=== PATIENT | female | born 1990 | race Caucasian/White ===

== ENCOUNTER 2024-03-31 18:25 | Emergency (ER) | payer OTHER ==
[~2024-03-31] VITALS: Ht 157.5 cm; Wt 49.0 kg
[2024-03-31 18:27] VITALS: BP 118/70; PULSE 79; RESP 18; TEMP 98.1; O2SAT 100
[2024-03-31 19:30] VITALS: BP 116/75; PULSE 83; RESP 15; O2SAT 95
== END 2024-03-31 20:20 | disposition home or self-care (01) ==
LOC: MED 18:25
DX: O02.81 Inappropriate change in quantitative human chorionic gonadotropin (hCG) in early pregnancy (principal); Z79.899 Other long term (current) drug therapy
CPT/HCPCS: 36415; 81025; 84702; 99283